=== PATIENT | male | born 1995 | race African-American/Black ===

== ENCOUNTER 2016-07-08 08:51 | Emergency (ER) | payer OTHER ==
[~2016-07-08] VITALS: Ht 177.8 cm; Wt 78.5 kg
[2016-07-08 08:53] VITALS: BP 131/79; PULSE 65; RESP 15; TEMP 98.1; O2SAT 99
[2016-07-08] MEDS ORDERED: LIDOCAINE HCL 2% 20 ML VIAL INFIL ONE (09:15)
[2016-07-08] MEDS ORDERED: TETANUS/DIPHTHERIA TOXOID ADULT 0.5 ML VIAL IM ONE (09:15)
[2016-07-08] MEDS ORDERED: AMOXICILLIN/CLAVULANATE K 875 MG TAB PO ONE (09:15)
[2016-07-08] MEDS ORDERED: AUGM875T PO (09:47)
--- NOTE | 2016-07-08 09:47 | PD ---
HPI Chief Complaint: Bite or Sting Time Seen by Provider: 09:20 Travel History International Travel<30 days: No Contact w/Intl Traveler<30days: No Traveled to known affect area: No History of Present Illness HPI Patient is a 21-year-old male who presents emergency for evaluation of a dog bite. Patient was bitten by a friend's dog this morning. He reports the dog is up-to-date with vaccinations. Patient is on certain when his last tetanus vaccination was. He reports his pain as a 6 out of 10 and describes it as throbbing. He denies any significant past medical history. [facility] Past Medical History Medical History: Denies Significant Hx Social History Alcohol Use: No Tobacco Use: No Substance Use: No Allergies-Medications (Allergen,Severity, Reaction): Coded Allergies: No Known Allergies (Unverified , 07/08/16) Reported Meds & Prescriptions Reported Meds & Active Scripts Active Ibuprofen 800 Mg Tab 800 Mg PO Q6HR PRN Augmentin (Amoxicillin-Clavulanate) 875-125 mg Tab 875 Mg PO BID not for use in CrCl <30 ml/min. Review of Systems Except as stated in HPI: all other systems reviewed are Neg Skin: Positive Lesions Physical Exam Narrative GENERAL: Well-nourished, well-developed patient. SKIN: Warm and dry. Puncture wound to the dorsal aspect of the right hand, puncture wound to the volar aspect of the right hand as well as an abrasion approximately 1 cm long to the volar aspect of the right hand. There is also a puncture wound to the left hand on the dorsal aspect and an abrasion to the volar aspect of the left hand approximately 1 cm long. Patient is neurovascularly intact. Base of wounds are well visualized. Puncture wounds are superficial with mild edema surrounding. No foreign bodies identified. HEAD: Normocephalic. EYES: No scleral icterus. No injection or drainage. NECK: Supple, trachea midline. No JVD or lymphadenopathy. CARDIOVASCULAR: Regular rate and rhythm without murmurs, gallops, or rubs. RESPIRATORY: Breath sounds equal bilaterally. No accessory muscle use. GASTROINTESTINAL: Abdomen soft, non-tender, nondistended. MUSCULOSKELETAL: No cyanosis, or edema. 5/5 muscle strength in bilateral upper extremities, positive radial pulses, brisk less than 3 second capillary refill. BACK: Nontender without obvious deformity. No CVA tenderness. Data Data Last Documented VS Vital Signs Date Time Temp Pulse Resp B/P Pulse Ox O2 Delivery O2 Flow Rate FiO2 07/08/16 08:53 98.1 65 15 131/79 99 Orders Tetanus/Diphtheria Tox Adult (Tetanus/Di (07/08/16 09:15) Amoxicil-Clavulanate (Augmentin) (07/08/16 09:15) Lidocaine 2% Inj (Xylocaine 2% Inj) (07/08/16 09:15) MDM Medical Decision Making Medical Screen Exam Complete: Yes Emergency Medical Condition: Yes Interpretation(s) Vital Signs Date Time Temp Pulse Resp B/P Pulse Ox O2 Delivery O2 Flow Rate FiO2 07/08/16 08:53 98.1 65 15 131/79 99 Differential Diagnosis Laceration versus puncture versus retained foreign body versus abrasion versus cellulitis versus other Narrative Course Patient is a 21-year-old male who presented to emergency for evaluation of a puncture wound secondary to dog bite that occurred just prior to arrival. Patient knows the dog's owners, dog is up-to-date with vaccinations. Patient has 2 superficial lacerations to each volar aspect of his palms bilaterally. Please see procedure report for laceration repair. Puncture wounds will be left open, these lacerations will heal better if approximated with sutures. Patient was given first dose of Augmentin in the emergency department as well as having his tetanus vaccine updated today. Patient verbalized understanding that he will need to complete full course of Augmentin therapy to avoid a secondary bacterial infection. He was encouraged to return to emergency department for any new or worsening symptoms. Patient is stable for discharge. Procedures Procedure Narrative LACERATION LOCATION: Right hand volar aspect LENGTH: 1 cm NUMBER OF STITCHES/ROSA: 4 REPAIR: The area of the laceration was prepped with Betadine and sterilely draped. The laceration was infiltrated with 2% cane. The wound was copiously irrigated and explored without evidence of foreign body, tendon injury or neurovascular injury. The wound was closed using 4-0 Prolene. This was a 1 layer repair. A sterile dressing was applied. The patient was advised to keep the dressing clean and dry. Patient tolerated the procedure well. LACERATION LOCATION: Left hand, volar aspect LENGTH: 1 cm NUMBER OF STITCHES/ROSA: 2 REPAIR: The area of the laceration was prepped with Betadine and sterilely draped. The laceration was infiltrated with 2% lidocaine. The wound was copiously irrigated and explored without evidence of foreign body, tendon injury or neurovascular injury. The wound was closed using 4-0 Prolene. This was a 1 layer repair. A sterile dressing was applied. The patient was advised to keep the dressing clean and dry. Patient tolerated the procedure well. Diagnosis Primary Impression: Dog bite Qualified Code: W54.0XXA - Dog bite, initial encounter Additional Impressions: Puncture wound Laceration Tetanus toxoid vaccination administered at current visit Referrals: Primary Care Physician Patient Instructions: Animal Bite (ED), Care For Your Stitches (ED), General Instructions, Stitches Removal (DC) Departure Forms: Tests/Procedures, Work Release Enter return to work date: Jul 09, 2016 Additional Instructions: Stitches will need to be removed in 10 days this can be done in the emergency department or with your primary doctor Complete full course of antibiotics as prescribed to avoid a secondary bacterial infection Return to emergency department for any new or worsening symptoms Keep stitches clean and dry, you may wash hands with soap and water. Do not use peroxide. Follow-up with your primary doctor Med/Other Pt SpecificInfo: Prescription(s) given Scripts Ibuprofen 800 Mg [id number] Mg PO Q6HR PRN (PAIN) #40 TAB Ref 0 Prov:Joanne Vega 07/08/16 Amoxicillin-Clavulanate (Augmentin)875-125 mg [id number] Mg PO BID #20 TAB Ref 0 not for use in CrCl <30 ml/min. Prov:Joanne Vega 07/08/16 Disposition: 01 DISCHARGE HOME Condition: Stable Joanne Vega Jul 08, 2016 09:47
[2016-07-08] MEDS ORDERED: IBUP800T23 PO (09:48)
== END 2016-07-08 10:50 | disposition home or self-care (01) ==
LOC: NEPB 08:51
DX: S61.411A Laceration without foreign body of right hand, initial encounter (principal); Z23 Encounter for immunization; S61.431A Puncture wound without foreign body of right hand, initial encounter; W54.0XXA Bitten by dog, initial encounter; Y93.9 Activity, unspecified; Y92.9 Unspecified place or not applicable; Y99.9 Unspecified external cause status
CPT/HCPCS: 12001; 90471; 90714

== ENCOUNTER 2016-07-19 18:25 | Emergency (ER) | payer OTHER ==
[~2016-07-19] VITALS: Ht 177.8 cm; Wt 70.0 kg
[~2016-07-19 18:25] MED LIST: AUGM875T PO; IBUP800T23 PO
[2016-07-19 18:26] VITALS: BP 134/75; PULSE 68; RESP 15; TEMP 98; O2SAT 100
--- NOTE | 2016-07-19 20:26 | PD ---
HPI Chief Complaint: Wound/Suture/Staple Re-Check Time Seen by Provider: 20:23 Travel History International Travel<30 days: No Contact w/Intl Traveler<30days: No Traveled to known affect area: No History of Present Illness HPI 21-year-old black male presents to emergency department for suture removal from a dog bite 10 days ago. LOCATION: Both hands QUALITY: Not applicable SEVERITY: Mild TIMING: Improving DURATION: 10 days CONTACTS: MODIFYING FACTORS: Include of the hands ASSOCIATED TIME AND SYMPTOMS: No fever or chills. No discharge. No redness. No pain. PFSH Past Medical History Medical History: Denies Significant Hx Diminished Hearing: No Social History Alcohol Use: No Tobacco Use: No Substance Use: No Allergies-Medications (Allergen,Severity, Reaction): Coded Allergies: No Known Allergies (Unverified , 07/08/16) Reported Meds & Prescriptions Reported Meds & Active Scripts Active Ibuprofen 800 Mg Tab 800 Mg PO Q6HR PRN Augmentin (Amoxicillin-Clavulanate) 875-125 mg Tab 875 Mg PO BID not for use in CrCl <30 ml/min. Review of Systems Except as stated in HPI: all other systems reviewed are Neg Physical Exam Narrative GENERAL: This is a well-nourished, well-developed patient, in no apparent distress. SKIN: No rashes, ecchymoses or lesions. Warm and dry. HEAD: Atraumatic. Normocephalic. EYES: PERRL, EOMI, no discharge or injection. No scleral icterus. EARS: Clear NOSE: Nasal turbinates appear normal. THROAT: Mucosa pink and moist. Airway patent. NECK: Trachea midline. supple, moves head freely. LUNGS: Clear to auscultation. CV: Regular in rhythm. ABDOMEN: Soft nontender. EXT: No clubbing cyanosis or edema. Patient has well-healed lacerations to both hands. No sign of infection. Data Data Last Documented VS Vital Signs Date Time Temp Pulse Resp B/P Pulse Ox O2 Delivery O2 Flow Rate FiO2 07/19/16 18:26 98.0 68 15 134/75 100 MDM Medical Decision Making Medical Screen Exam Complete: Yes Emergency Medical Condition: Yes Medical Record Reviewed: Yes Differential Diagnosis MDM: High Differential diagnoses: Fracture, sprain, strain, dislocation, contusion, neurovascular injury Narrative Course Sutures removed without incidence. Diagnosis Primary Impression: Visit for suture removal Additional Impression: Dog bite Qualified Code: W54.0XXD - Dog bite, subsequent encounter Patient Instructions: General Instructions Additional Instructions: Rest. Local wound care. Return to the ER if any problems. Med/Other Pt SpecificInfo: Wound Care Disposition: 01 DISCHARGE HOME Condition: Stable Noel Sanchez Jul 19, 2016 20:26
== END 2016-07-19 20:37 | disposition home or self-care (01) ==
LOC: NEPB 18:25
DX: S61.452D Open bite of left hand, subsequent encounter (principal); S61.451D Open bite of right hand, subsequent encounter; Z48.02 Encounter for removal of sutures; W54.0XXD Bitten by dog, subsequent encounter
CPT/HCPCS: 99281